=== PATIENT | female | born 1940 | race Caucasian/White ===

== ENCOUNTER 2016-05-22 14:36 | Outpatient (CLI) | payer MEDICARE | END 2016-05-22 14:37 | disposition home or self-care (01) | DX: Z12.31 Encounter for screening mammogram for malignant neoplasm of breast (principal) ==

== ENCOUNTER 2016-08-31 09:30 | Outpatient (CLI) | payer MEDICARE | END 2016-08-31 09:31 | disposition home or self-care (01) | DX: R07.81 Pleurodynia (principal) ==

== ENCOUNTER 2016-09-25 17:40 | Outpatient (CLI) | payer MEDICARE ==
--- NOTE | 2016-09-25 19:57 | Ultrasound Preliminary Report ---
Exam: US Chest IMPRESSION: Very small superficial subcutaneous nodule in the chest measuring 0.4 [address] in maximum diame ter. The ultrasound characteristics are not entirely specific but could represent a lipoma, postinfla mmatory scar or debris-filled cyst. RADIA The call report notification system was initiated by Dr. William Christy at 19:39 hrs on 7. The above findings were discussed with Dr. Stephanie Hunter by Dr. William Christy at 19:56 hrs on 09/25/16. SITE ID: [id number]
--- NOTE | 2016-09-25 20:00 | Ultrasound Report ---
EXAM: ULTRASOUND SOFT TISSUE CHEST EXAM DATE: 09/25/2016 06:23 PM. CLINICAL HISTORY: RT LATERAL CHEST WALL NODULE IN SOFT TISSUE. COMPARISON: None. TECHNIQUE: Realtime ultrasound scanning without images obtained. FINDINGS: 8 ultrasound images were performed and obtained of a palpable lump. There is a superficial echogenic nodule located within the subcutaneous tissue and measuring 0.4 x 0.4 x 0.2 cm. IMPRESSION: Very small superficial subcutaneous nodule in the chest measuring 0.[address] in maximum diame ter. The ultrasound characteristics are not entirely specific but could represent a lipoma, postinfla mmatory scar or debris-filled cyst. RADIA The call report notification system was initiated by Dr. William Christy at 19:39 hrs on 7. The above findings were discussed with Dr. Stephanie Hunter by Dr. William Christy at 19:56 hrs on 09/25/16. Referring Provider Line: [phone] SITE ID: [id number]
== END 2016-09-25 17:41 | disposition home or self-care (01) ==
LOC: DI 17:40
PROVIDERS: ATTEND Physician Assistant Medical
DX: R22.2 Localized swelling, mass and lump, trunk (principal)
CPT/HCPCS: 76604

== ENCOUNTER 2017-03-17 12:26 | Outpatient (CLI) | payer MEDICARE ==
--- NOTE | 2017-03-17 20:21 | CT Report ---
EXAM: CT SINUS EXAM DATE: 03/17/2017 12:41 PM. HISTORY: Acute sinusitis COMPARISONS: None. TECHNIQUE: Routine multi-axial CT imaging performed through the sinuses. Iodinated IV contrast: None. Reconstructions: Coronal. In accordance with CT protocol optimization, one or more of the following dose reduction techniques w ere utilized for this exam: automated exposure control, adjustment of mA and/or KV based on patient s ize, or use of iterative reconstructive technique. FINDINGS: RIGHT Frontal: Normal. Ethmoid: Normal. Maxillary: Minimal mucosal thickening in the medial floor. Sphenoid: Normal. Drainage Pathways: The frontal recess, ostiomeatal complex and sphenoethmoidal recess are patent and normal. LEFT Frontal: Normal. Ethmoid: Normal. Maxillary: Normal. Sphenoid: Normal. Drainage Pathways: The frontal recess, ostiomeatal complex and sphenoethmoidal recess are patent and normal. Nasal Cavity: Normal. No mass or significant anatomic abnormality evident. Osseous Structures: Incidentally noted hyperostosis frontalis interna. Orbits: Bilateral lens replacements noted. Other: The visualized intracranial contents are unremarkable. IMPRESSION: Minimal mucosal thickening in the right maxillary sinus floor. The paranasal sinuses are otherwise clear. No fluid levels to indicate acute sinusitis. The drainage pathways are patent. RADIA Referring Provider Line: [phone] SITE ID: [id number]
== END 2017-03-17 12:27 | disposition home or self-care (01) ==
LOC: DI 12:26
PROVIDERS: ATTEND Physician Assistant Medical
DX: J01.90 Acute sinusitis, unspecified (principal)
CPT/HCPCS: 70486

== ENCOUNTER 2017-05-15 08:00 | Outpatient (CLI) | payer MEDICARE ==
[2017-05-15 12:48] LABS: BASOPHILS % (AUTO) 0.5 %; EOSINOPHILS # (AUTO) 0.1 10^3/uL (0.0-0.7); EOSINOPHILS % (AUTO) 1.6 %; LYMPHOCYTES # (AUTO) 2.5 10^3/uL (1.5-3.5); LYMPHOCYTES % (AUTO) 33.6 %; MEAN CORPUSCULAR HEMOGLOBIN 28.8 pg (27.0-31.0); MEAN CORPUSCULAR HGB CONC 33.6 g/dL (32.0-36.0); MEAN CORPUSCULAR VOLUME 85.6 fL (81.0-99.0); MEAN PLATELET VOLUME 8.6 fL (7.9-10.8); MONOCYTES # (AUTO) 0.5 10^3/uL (0.0-1.0); MONOCYTES % (AUTO) 7.1 %; NEUTROPHILS # (AUTO) 4.3 10^3/uL (1.5-6.6); NEUTROPHILS % (AUTO) 57.2 %; PLT - PLATELET COUNT 198 10^3/uL (130-450); RED BLOOD COUNT 4.86 10^6/uL (4.20-5.40); RED CELL DISTRIBUTION WIDTH 13.7 % (12.0-15.0); WHITE BLOOD COUNT 7.5 x10^3/uL (4.8-10.8)
[2017-05-15 13:05] LABS: ALBUMIN 4.4 g/dL (3.2-5.5); ALBUMIN/GLOBULIN RATIO 1.2 (1.0-2.2); ALKALINE PHOSPHATASE 48 IU/L (42-121); ALT ALANINE AMINOTRANSFERASE 33 IU/L (10-60); AST ASPARTATE AMINOTRANSFERASE 33 IU/L (10-42); BILIRUBIN,TOTAL 0.6 mg/dL (0.2-1.0); BUN - BLOOD UREA NITROGEN 15 mg/dL (6-20); CALCIUM 9.5 mg/dL (8.5-10.3); CARBON DIOXIDE - CO2 25 mmol/L (21-32); CHLORIDE 103 mmol/L (101-111); CHOLESTEROL 176 mg/dL; CREATININE 0.8 mg/dL (0.4-1.0); GFR - MDRD 69 (>89); GLUCOSE 127 mg/dL (70-100); HDL CHOLESTEROL 44 mg/dL; LDL CHOLESTEROL,CALCULATED 86 mg/dL; SODIUM 138 mmol/L (135-145); TOTAL PROTEIN 8.1 g/dL (6.7-8.2); VLDL CHOLESTEROL 46 mg/dL
[2017-05-15 13:33] LABS: HEMOGLOBIN A1C 0.62 g/dL; HEMOGLOBIN A1C % 5.9 % (4.6-6.2)
== END 2017-05-15 08:01 | disposition home or self-care (01) ==
LOC: LAB.N 08:00
PROVIDERS: ATTEND Internal Medicine
DX: E11.49 Type 2 diabetes mellitus with other diabetic neurological complication (principal); E78.5 Hyperlipidemia, unspecified; Z79.899 Other long term (current) drug therapy
CPT/HCPCS: 36415; 80053; 80061; 83036; 85025

== ENCOUNTER 2017-07-11 10:15 | Outpatient (CLI) | payer MEDICARE ==
--- NOTE | 2017-07-12 14:43 | Mammography Report ---
DIGITAL SCREENING MAMMOGRAM: 07/11/2017 CLINICAL INDICATION: A 76-year-old with history of benign left breast biopsy for screening. COMPARISON: 05/2016, 04/2015, 04/2014, 03/2013, 10/2011, 10/2010, 10/2009. TECHNIQUE: Routine CC and MLO projections were obtained of the breasts. FINDINGS: The breasts demonstrate scattered fibroglandular densities bilaterally. Postbiopsy changes in the left breast are stable. Coarse and punctate, typically benign calcifications are present. No suspicious masses, clustered microcalcifications, or regions of architectural distortion are identified. IMPRESSION: BENIGN FINDINGS. RECOMMENDATION: Routine annual screening unless otherwise clinically indicated. BIRADS CATEGORY 2 - benign findings. STANDARD QUALIFYING STATEMENTS: 1. This examination was reviewed with the aid of Computer-Aided Detection (CAD). 2. A negative or benign imaging report should not delay biopsy if clinically suspicious findings are present. Consider surgical consultation if warranted. More than 5% of cancers are not identified by imaging. 3. Dense breasts may obscure an underlying neoplasm. TD: 07/12/2017 14:42
== END 2017-07-11 10:16 | disposition home or self-care (01) ==
LOC: DI.N 10:15
PROVIDERS: ATTEND Internal Medicine
DX: Z12.31 Encounter for screening mammogram for malignant neoplasm of breast (principal)
CPT/HCPCS: 77067

== ENCOUNTER 2017-11-12 08:00 | Outpatient (CLI) | payer MEDICARE | END 2017-11-12 08:01 | disposition home or self-care (01) | LOC: LAB.R 08:00 | PROVIDERS: ATTEND Internal Medicine | DX: Z01.818 Encounter for other preprocedural examination (principal); M19.90 Unspecified osteoarthritis, unspecified site | CPT/HCPCS: 87640 ==

== ENCOUNTER 2017-11-14 08:00 | Outpatient (CLI) | payer MEDICARE ==
[2017-11-14 12:45] LABS: BASOPHILS % (AUTO) 0.1 %; EOSINOPHILS # (AUTO) 0.1 10^3/uL (0.0-0.7); EOSINOPHILS % (AUTO) 1.4 %; HGB - HEMOGLOBIN 13.1 g/dL (12.0-16.0); LYMPHOCYTES # (AUTO) 1.9 10^3/uL (1.5-3.5); MEAN CORPUSCULAR HEMOGLOBIN 29.1 pg (27.0-31.0); MEAN CORPUSCULAR VOLUME 88.1 fL (81.0-99.0); MEAN PLATELET VOLUME 8.5 fL (7.9-10.8); MONOCYTES # (AUTO) 0.5 10^3/uL (0.0-1.0); MONOCYTES % (AUTO) 7.9 %; NEUTROPHILS # (AUTO) 3.9 10^3/uL (1.5-6.6); NEUTROPHILS % (AUTO) 60.6 %; PLT - PLATELET COUNT 201 10^3/uL (130-450); RED BLOOD COUNT 4.52 10^6/uL (4.20-5.40); WHITE BLOOD COUNT 6.5 x10^3/uL (4.8-10.8)
[2017-11-14 13:02] LABS: ALBUMIN 3.9 g/dL (3.2-5.5); ALBUMIN/GLOBULIN RATIO 1.1 (1.0-2.2); BILIRUBIN,TOTAL 0.7 mg/dL (0.2-1.0); CALCIUM 9.3 mg/dL (8.5-10.3); CREATININE 0.8 mg/dL (0.4-1.0); TOTAL PROTEIN 7.4 g/dL (6.7-8.2)
== END 2017-11-14 08:01 | disposition home or self-care (01) ==
LOC: LAB.N 08:00
PROVIDERS: ATTEND Internal Medicine
DX: Z01.812 Encounter for preprocedural laboratory examination (principal); M19.90 Unspecified osteoarthritis, unspecified site; E11.49 Type 2 diabetes mellitus with other diabetic neurological complication; E78.5 Hyperlipidemia, unspecified
CPT/HCPCS: 36415; 80053; 85025

== ENCOUNTER 2017-12-03 08:00 | Outpatient (CLI) | payer MEDICARE | END 2017-12-03 08:01 | disposition home or self-care (01) | LOC: LAB.N 08:00 | PROVIDERS: ATTEND Orthopaedic Surgery | DX: Z01.812 Encounter for preprocedural laboratory examination (principal); M17.11 Unilateral primary osteoarthritis, right knee | CPT/HCPCS: 36415; 86850; 86900; 86901 ==

== ENCOUNTER 2017-12-04 06:14 | Inpatient (IN) | payer MEDICARE ==
[2017-12-04] MEDS ORDERED: SODIUM CHLORIDE 0.9% 30 ML ONE (06:58)
[2017-12-04] MEDS ORDERED: BUPIVACAINE 0.5% PF 30 ML VIAL ONE (06:58)
[2017-12-04] MEDS ORDERED: ROPIVACAINE 0.5% PF 20 ML AMPULE ONE (06:59)
[2017-12-04] MEDS ORDERED: EPINEPHrine 1 MG/ML AMP ONE (07:00)
[2017-12-04] MEDS ORDERED: ceFAZolin 2 GM/50 ML 2 GM/50 ML BAG IV ONE (07:01)
[2017-12-04] MEDS ORDERED: LACTATED RINGERS 1,000 ML IV ONE ×2 (07:15→09:31)
[2017-12-04] MEDS ORDERED: EPINEPHrine 1 MG/ML AMP SUBQ ONE ×2 (08:28)
[2017-12-04] MEDS ORDERED: ROPIVACAINE 0.2% PF 20 ML AMPULE SUBQ ONE ×2 (08:29)
[2017-12-04] MEDS ORDERED: BUPIVACAINE 0.5% PF 30 ML VIAL SUBQ ONE ×2 (08:32)
[2017-12-04] MEDS ORDERED: KETOROLAC 30 MG/ML VIAL IVP ONE ×2 (08:33)
[2017-12-04] MEDS ORDERED: MORPHINE PF 5 MG/10 ML AMP SUBQ ONE ×2 (08:34)
[2017-12-04] MEDS ORDERED: MIDAZOLAM 2 MG/2 ML VIAL IVP ONE (09:00)
[2017-12-04] MEDS ORDERED: LIDOCAINE-MPF 2% 5 ML VIAL IM ONE (09:00)
[2017-12-04] MEDS ORDERED: MORPHINE PF 5 MG/10 ML AMP EP ONE (09:00)
[2017-12-04] MEDS ORDERED: PROPOFOL 200 MG/20 ML VIAL IVP ONE (09:00)
[2017-12-04] MEDS: fentaNYL 100 MCG/2 ML VIAL ONE ×3 (09:55→10:09)
--- NOTE | 2017-12-04 10:10 | OPERATIVE REPORT ---
Operative Report - General Admit Date: 12/04/17 Procedure Date: 12/04/17 Planned Procedure: Right TKA Pre-Op Diagnosis: DJD right knee Procedure Performed: Right Cemented TKA Post Op Diagnosis: same - Procedure Note Primary Surgeon: cat Anesthesia Provider: Dr. Wood Anesthesia Technique: Combo spinal/epidural Estimated Blood Loss (mL): 70
[2017-12-04] MEDS ORDERED: SODIUM CHLORIDE FLUSH 0.9% 10 ML SYRINGE IVP PRN (10:11)
[2017-12-04] MEDS ORDERED: SENNA 8.6 MG TABLET PO PRN (10:11)
[2017-12-04] MEDS ORDERED: PROCHLORPERAZINE 10 MG/2 ML VIAL IVP PRN (10:11)
[2017-12-04] MEDS ORDERED: MORPHINE 2 MG/ML SYRINGE IVP PRN (10:11)
[2017-12-04] MEDS ORDERED: BISACODYL 10 MG SUPP PR PRN (10:11)
[2017-12-04] MEDS ORDERED: ONDANSETRON 4 MG/2 ML VIAL IVP PRN (10:11)
[2017-12-04] MEDS ORDERED: ACETAMINOPHEN 1,000 MG/100 ML 100 ML IV ONE (10:14)
[2017-12-04] MEDS: HYDROmorphone 1 MG/ML CARPUJECT ONE ×2 (10:16→10:27)
[2017-12-04] MEDS: LACTATED RINGERS 1,000 ML IV SCH ×2 (11:07→16:48)
--- NOTE | 2017-12-04 13:04 | XRAY Report ---
Procedure Date: 12/04/2017 Accession Number: [id number] / [id number] Procedure: XR - Knee 2 View RT CPT Code: FULL RESULT: EXAM: Knee 2 View RT DATE: 12/04/2017 12:58 PM CLINICAL HISTORY: post TKA COMPARISON: None. TECHNIQUE: 2 views. FINDINGS: The patient is status post total knee arthroplasty without evidence of dislocation, fracture or hardware failure. There is expected surrounding soft tissue swelling. IMPRESSION: Status post right total knee arthroplasty. RADIA
[2017-12-04] MEDS: ceFAZolin 2 GM/50 ML 2 GM/50 ML BAG IV SCH ×2 (13:49→21:34)
--- NOTE | 2017-12-04 16:36 | OPERATIVE REPORT ---
DATE OF SERVICE: 12/04/2017 Physician: Gareth Pritchett MD PREOPERATIVE DIAGNOSIS: Right knee osteoarthritis. POSTOPERATIVE DIAGNOSIS: Right knee osteoarthritis. PROCEDURE: Cemented right total knee arthroplasty. OPERATING SURGEON: Gareth Pritchett MD ANESTHESIA: Spinal by Dr. Batista. INDICATIONS FOR SURGERY: Patient is a 77-year-old female with advancing and severe osteoarthritis of her right knee who has severe functional limitations and constant pain and has failed nonoperative treatment. She has been consented for total knee arthroplasty. FINDINGS AT SURGERY: Patient's knee was found to have an effusion. She did have a fairly strong bone and was noted to have most severe changes in the medial compartment with partial anterior horn tearing of her medial meniscus, [id number] articulation kissing in the area on the femur of exposed subchondral bone. There was fissuring in the femoral groove and on the patella and severe softening in the lateral compartment. Cruciate ligaments were intact. DESCRIPTION OF OPERATIVE PROCEDURE: Patient was taken to the operating room. She was given a spinal anesthetic in a supine position. A tourniquet was placed on her thigh and her knee and leg were sterilely prepped and draped in standard fashion. After surgical timeout, the patient's limb was exsanguinated and the tourniquet inflated to 300 mmHg. A curved medial incision was made around the knee and a parapatellar incision was made through the medial retinaculum, exposing the underlying knee joint, removing effusion and allowing the knee to be exposed in flexion with the patella everted laterally. Retractors were positioned. A central hole was made in the femur for placement of the femoral medullary cutting block and the distal block was applied and the distal femoral cut made. The sizing block was applied and a size 5 was selected for the 4-in-1 cutting block and the appropriate cuts were made without notching. A bone plug was used in the femoral medullary hole. Retractors were then positioned around the tibia for appropriate resection of the tibia measuring a 1 mm resection off the deepest worn part of the medial plateau, resecting the tibia and preserving surrounding collateral ligaments. Spacer blocks were used to confirm appropriate resection in flexion and extension with matching gaps. Following this, the exposure was made of the tibia and appropriate sizing was a size C baseplate, which was secured to the tibia for the reaming and broaching that were required. A trial reduction was performed and it was elected to use narrow components on the femur , a size 5 narrow with a size C baseplate and a standard 10 mm poly, which stabilized the knee and allowed full range of motion. The patella was prepared by resection of 8 mm of the patella to resize back to 23 mm and medialization of a 29 mm component. This was drilled for and a trial component applied and a further lateral release performed to accommodate better tracking with a no thumbs technique. All surfaces were then thoroughly irrigated and the implantable components brought into the field and sequential cementing of the components undertaken with first the tibial tray, followed by the femur with removal of excess cement, followed by insertion of the poly and finally insertion of the patella. Once the cement was allowed to harden, excess cement was removed. The knee was flushed and irrigated and bathed in Betadine solution , and then flushed again. With the tourniquet deflated, there was minimal bleeding and what was there was controlled by cautery. Closure was undertaken with interrupted FiberWire closure of the capsule, followed by interrupted 0 and 2-0 Vicryl of subcutaneous tissue and 2-0 Prolene and skin. The wound was cleansed and a silver-containing occlusive dressing was applied, followed by a soft cast roll padding and Tomás wrap. The patient was taken to the recovery room in stable condition. ESTIMATED BLOOD LOSS: About 60 mL. COMPLICATIONS: None. COUNTS: Sponge and needle counts correct. IMPLANTS USED: [employer] knee implants, size 5 narrow femur, size C tibial tray with medial congruent 10 mm poly and a size 29 patella medialized to 8 mm thick. TD: 12/04/2017 12:29 SHWETA
[2017-12-04] MEDS: ASPIRIN 325 MG TABLET PO SCH (16:49)
[2017-12-04] MEDS: SODIUM CHLORIDE FLUSH 0.9% 10 ML SYRINGE IVP SCH (16:49)
[2017-12-04] MEDS: ACETAMINOPHEN 325 MG TABLET PO PRN ×2 (17:40→21:42)
[2017-12-04] MEDS: oxyCODONE 5 MG TABLET PO PRN ×2 (17:40→21:43)
[2017-12-04] MEDS ORDERED: LATANOPROST 0.005% OPHTH DROPS EACHEYE SCH (21:00)
[2017-12-04] MEDS: ATORVASTATIN 10 MG TABLET PO SCH (21:32)
[2017-12-04] MEDS: GABAPENTIN 300 MG CAPSULE PO SCH (21:32)
[2017-12-05] MEDS: SODIUM CHLORIDE FLUSH 0.9% 10 ML SYRINGE IVP SCH ×4 (00:31→23:42)
[2017-12-05] MEDS: LACTATED RINGERS 1,000 ML IV SCH (02:40)
[2017-12-05] MEDS: ACETAMINOPHEN 325 MG TABLET PO PRN ×4 (03:48→14:50)
[2017-12-05] MEDS: oxyCODONE 5 MG TABLET PO PRN ×4 (03:49→14:51)
[2017-12-05 05:40] LABS: BASOPHILS % (AUTO) 0.4 %; EOSINOPHILS # (AUTO) 0.1 10^3/uL (0.0-0.7); EOSINOPHILS % (AUTO) 0.8 %; LYMPHOCYTES # (AUTO) 1.5 10^3/uL (1.5-3.5); LYMPHOCYTES % (AUTO) 19.6 %; MEAN CORPUSCULAR VOLUME 88.1 fL (81.0-99.0); MONOCYTES # (AUTO) 0.8 10^3/uL (0.0-1.0); MONOCYTES % (AUTO) 10.7 %; NEUTROPHILS # (AUTO) 5.2 10^3/uL (1.5-6.6); NEUTROPHILS % (AUTO) 68.5 %; PLT - PLATELET COUNT 139 10^3/uL (130-450); RED BLOOD COUNT 3.78 10^6/uL (4.20-5.40); WHITE BLOOD COUNT 7.6 x10^3/uL (4.8-10.8)
[2017-12-05 05:48] LABS: CALCIUM 8.7 mg/dL (8.5-10.3); CREATININE 0.9 mg/dL (0.4-1.0)
--- NOTE | 2017-12-05 07:31 | PROVIDER PROGRESS NOTE ---
Subjective - General Admit Date: 12/04/17 Procedure Date: 12/04/17 Post Op Days: 1 Procedure Performed: right total knee arthroplasty Objective - Patient Data Reviewed Vital Signs: Yes Vital Signs: Vital Signs x48h Temp Pulse Resp BP Pulse Ox 12/05/17 06:30 36.9 C 84 16 123/54 L 94 12/05/17 00:20 36.9 C 82 16 126/47 L 95 Weight: Weight 12/03/17 12/04/17 12/05/17 23:59 23:59 23:59 Weight (kg) 84.9 kg Intake & Output: Intake and Output Totals x24h 12/03/17 12/04/17 12/05/17 23:59 23:59 23:59 Intake Total 2945.333 986.667 Output Total 2325 1000 Balance 620.333 -13.333 - Lab Results Lab Results: 12/05/17 05:33 12/05/17 05:33 Other Lab Results: Lab Results x24hrs 12/05/17 12/05/17 Range/Units 05:33 05:33 WBC 7.6 (4.8-10.8) x10^3/uL RBC 3.78 L (4.20-5.40) 10^6/uL Hgb 11.0 L (12.0-16.0) g/dL Hct 33.3 L (37.0-47.0) % MCV 88.1 (81.0-99.0) fL MCH 29.0 (27.0-31.0) pg MCHC 33.0 (32.0-36.0) g/dL RDW 14.0 (12.0-15.0) % Plt Count 139 (130-450) 10^3/uL MPV 8.0 (7.9-10.8) fL Neut # (Auto) 5.2 (1.5-6.6) 10^3/uL Lymph # (Auto) 1.5 (1.5-3.5) 10^3/uL Barron # (Auto) 0.8 (0.0-1.0) 10^3/uL Eos # (Auto) 0.1 (0.0-0.7) 10^3/uL Baso # (Auto) 0.0 (0.0-0.1) 10^3/uL Absolute Nucleated RBC 0.00 x10^3/uL Nucleated RBC % 0.0 /100WBC Sodium 138 (135-145) mmol/L Potassium 4.0 (3.5-5.0) mmol/L Chloride 104 (101-111) mmol/L Carbon Dioxide 26 (21-32) mmol/L Anion Gap 8.0 (6-13) BUN 12 (6-20) mg/dL Creatinine 0.9 (0.4-1.0) mg/dL Estimated GFR (MDRD) 60 L (>89) Glucose 167 H (70-100) mg/dL Calcium 8.7 (8.5-10.3) mg/dL - Current Medications Current Medications: Current Medications Generic Name Dose Route Start Last Admin Trade Name Freq PRN Reason Stop Dose Admin Acetaminophen 650 - 975 mg 12/04/17 10:11 12/05/17 07:13 Tylenol PO 325 mg Q4HR PRN Administration PAIN Aspirin 325 mg 12/04/17 17:00 12/04/17 16:49 Gretchen PO 325 mg BIDWM AUTUMN Administration Atorvastatin Calcium 20 mg 12/04/17 21:00 12/04/17 21:32 Lipitor PO 20 mg QPM AUTUMN Administration Gabapentin 300 mg 12/04/17 21:00 12/04/17 21:32 Neurontin PO 300 mg HS AUTUMN Administration Lactated Ringer's 1,000 mls @ 100 mls/hr 12/04/17 12:00 12/05/17 02:40 Lr IV 100 mls/hr .Q10H AUTUMN Administration Latanoprost 1 drops 12/04/17 21:00 12/04/17 21:32 Xalatan Ophth Drops EACHEYE 1 drops QPM AUTUMN Administration Oxycodone HCl 5 mg 12/04/17 10:11 12/05/17 07:14 Roxicodone PO 5 mg Q4HR PRN Administration PAIN Sodium Chloride 10 ml 12/04/17 17:00 12/05/17 00:31 Normal Saline Flush 0.9% IVP Not Given 0100,0900,1700 AUTUMN
[2017-12-05] MEDS: ASPIRIN 325 MG TABLET PO SCH ×2 (08:32→16:38)
[2017-12-05] MEDS: KETOROLAC 30 MG/ML VIAL IVP PRN ×2 (10:55→19:45)
[2017-12-05] MEDS: ATORVASTATIN 10 MG TABLET PO SCH (20:45)
[2017-12-05] MEDS: GABAPENTIN 300 MG CAPSULE PO SCH (20:46)
[2017-12-06] MEDS: oxyCODONE 5 MG TABLET PO PRN (06:18)
[2017-12-06] MEDS: ASPIRIN 325 MG TABLET PO SCH (08:15)
[2017-12-06 08:16] VITALS: BP 171/63
[2017-12-06] MEDS: KETOROLAC 30 MG/ML VIAL IVP PRN (08:16)
[2017-12-06] MEDS: SODIUM CHLORIDE FLUSH 0.9% 10 ML SYRINGE IVP SCH (08:20)
[2017-12-06] MEDS ORDERED: LATANOPROST 0.005% OPHTH DROPS EACHEYE SCH (09:00)
[2017-12-06] MEDS ORDERED: SENNA 8.6 MG TABLET PO SCH (09:00)
[2017-12-06] MEDS ORDERED: DOCUSATE SODIUM 250 MG CAPSULE PO SCH (09:00)
--- NOTE | 2017-12-06 10:11 | PROVIDER PROGRESS NOTE ---
Subjective - General Admit Date: 12/04/17 Procedure Date: 12/04/17 Post Op Days: 2 Procedure Performed: right total knee arthroplasty - Review of Systems Wound/Incisions: positive: Healing well, Dressing dry and intact Musculoskeletal: positive: Joint pain Skin: positive: No symptoms Objective - Patient Data Reviewed Vital Signs: Yes Vital Signs: Vital Signs x48h Temp Pulse Resp BP Pulse Ox 12/06/17 08:14 36.6 C 72 20 171/63 H 97 Weight: Weight 12/04/17 12/05/17 12/06/17 23:59 23:59 23:59 Weight (kg) 84.9 kg Intake & Output: Intake and Output Totals x24h 12/04/17 12/05/17 12/06/17 23:59 23:59 23:59 Intake Total 2945.333 2886.667 570 Output Total 2325 2400 500 Balance 620.333 486.667 70 - Lab Results Lab Results: 12/05/17 05:33 12/05/17 05:33 - Imaging Results Radiology Imaging: positive: EMP read indepedently - Current Medications Current Medications: Current Medications Generic Name Dose Route Start Last Admin Trade Name Freq PRN Reason Stop Dose Admin Acetaminophen 650 - 975 mg 12/04/17 10:11 12/05/17 14:50 Tylenol PO 650 mg Q4HR PRN Administration PAIN Aspirin 325 mg 12/04/17 17:00 12/06/17 08:15 Gretchen PO 325 mg BIDWM AUTUMN Administration Atorvastatin Calcium 20 mg 12/04/17 21:00 12/05/17 20:45 Lipitor PO 20 mg QPM AUTUMN Administration Docusate Sodium 250 - 500 mg 12/06/17 09:00 12/06/17 08:15 Colace 250mg Capsule PO 500 mg DAILY AUTUMN Administration Gabapentin 300 mg 12/04/17 21:00 12/05/17 20:46 Neurontin PO 300 mg HS AUTUMN Administration Ketorolac Tromethamine 30 mg 12/05/17 10:40 12/06/17 08:16 Toradol Inj (30mg) IVP 12/06/17 10:39 30 mg Q6HR PRN Administration PAIN Morphine Sulfate 2 mg 12/04/17 10:11 12/05/17 10:41 Morphine IVP 2 mg Q2HR PRN Administration PAIN Oxycodone HCl 5 mg 12/04/17 10:11 12/06/17 06:18 Roxicodone PO 5 mg Q4HR PRN Administration PAIN Latanoprost 0.005% 1 each 12/06/17 09:00 12/05/17 20:45 Ophth Drops EACHEYE 1 each QPM AUTUMN Administration Senna 8.6 - 17.2 mg 12/06/17 09:00 12/06/17 08:20 Senokot PO 17.2 mg DAILY AUTUMN Administration Sodium Chloride 10 ml 12/04/17 17:00 12/06/17 08:20 Normal Saline Flush 0.9% IVP 10 ml 0100,0900,1700 AUTUMN Administration Sodium Chloride 10 ml 12/04/17 10:11 12/05/17 19:46 Normal Saline Flush 0.9% IVP 10 ml PRN PRN Administration NEEDED PER PROVIDER ORDERS - Physical Exam Wound/Incisions: positive: Healing well General Appearance: positive: Alert Skin: positive: Warm, Dry Extremities: positive: Joint swelling Neurologic/Psychiatric: positive: CN's nml (2-12), Motor nml, Sensation nml, Mood/affect nml Impression/Plan - Problem List Problem List: POD #2: Pt doing well Plan d/c to home rtc next week
[2017-12-06] MEDS: ACETAMINOPHEN 325 MG TABLET PO PRN (12:00)
--- NOTE | 2017-12-06 12:10 | Discharge Plan ---
Discharge Plan Disposition: Home, Self Care Condition: Good Prescriptions: oxyCODONE [Roxicodone] 5 mg PO Q4HR PRN #30 tablet PRN Reason: Pain Aspirin [Gretchen] 325 mg PO BIDWM #60 tablet Docusate Sodium 250Mg Capsule [Colace 250Mg Capsule] 250 - 500 mg PO DAILY #30 capsule Diet: Regular Activity Restrictions: Wt Bearing as Tolerated Shower Restrictions: Yes (cover right knee and keep dry) Driving Restrictions: Yes (no driving) Assistance Devices: Walker Weight Bearing: Full Weight Follow-Up Care: Outpatient Rehab - PT No Smoking: If you smoke, Please STOP! Call for help. Follow-up with: Frank Solorzano MD [Primary Care Provider] - Gareth Pritchett MD [Provider Admit Priv/Credential] -
--- NOTE | 2017-12-28 01:20 | DISCHARGE SUMMARY ---
Physician: Gareth Pritchett MD DATE OF ADMISSION: 12/04/2017 DATE OF DISCHARGE: 12/06/2017 ADMISSION DIAGNOSES: Right knee severe osteoarthritis. OPERATIVE PROCEDURE: Right total knee replacement arthroplasty performed on 12/04/2017. REASON FOR ADMISSION: Arabella is a 66-year-old female with progressive osteoarthritis of her right knee, who has been managed with nonoperative treatment over an extended period of time and has persis tent knee pain, functional limitations and desires total knee arthroplasty. HOSPITAL COURSE: The patient was admitted and her history and physical exam are delineated and docum ented in her hospital record. She was taken to surgery on the date of admission and tolerated total knee arthroplasty uneventfully. The patient did well during the surgery and afterwards. She had une ventful healing, was afebrile, showed minimal swelling at the time of discharge. At the time of disc harge, she was set up to go home on oral pain medication and aspirin for DVT prophylaxis. She was to begin physical therapy within a week and be returned to clinic within 4-5 days. TD: 12/27/2017 17:00
== END 2017-12-06 13:45 | disposition home or self-care (01) | DRG 470 ==
LOC: MS2 06:14
PROVIDERS: ADMIT Orthopaedic Surgery; ATTEND Orthopaedic Surgery
PROC: 0SRC0J9 Replacement of Right Knee Joint with Synthetic Substitute, Cemented, Open Approach (ICD-10-PCS; principal; 2017-12-04 07:30)
DX: M17.0 Bilateral primary osteoarthritis of knee (principal); M25.461 Effusion, right knee
CPT/HCPCS: 36415; 80048; 85025

== ENCOUNTER 2018-05-17 08:19 | Outpatient (CLI) | payer MEDICARE ==
[2018-05-17 12:58] LABS: BASOPHILS % (AUTO) 0.2 %; EOSINOPHILS # (AUTO) 0.1 10^3/uL (0.0-0.7); EOSINOPHILS % (AUTO) 1.7 %; HGB - HEMOGLOBIN 13.3 g/dL (12.0-16.0); LYMPHOCYTES # (AUTO) 1.8 10^3/uL (1.5-3.5); LYMPHOCYTES % (AUTO) 30.5 %; MEAN CORPUSCULAR HEMOGLOBIN 28.4 pg (27.0-31.0); MEAN CORPUSCULAR HGB CONC 33.5 g/dL (32.0-36.0); MEAN CORPUSCULAR VOLUME 84.7 fL (81.0-99.0); MEAN PLATELET VOLUME 8.3 fL (7.9-10.8); MONOCYTES # (AUTO) 0.5 10^3/uL (0.0-1.0); MONOCYTES % (AUTO) 8.3 %; NEUTROPHILS # (AUTO) 3.5 10^3/uL (1.5-6.6); NEUTROPHILS % (AUTO) 59.3 %; PLT - PLATELET COUNT 199 10^3/uL (130-450); RED BLOOD COUNT 4.67 10^6/uL (4.20-5.40); RED CELL DISTRIBUTION WIDTH 15.6 % (12.0-15.0); WHITE BLOOD COUNT 5.9 x10^3/uL (4.8-10.8)
[2018-05-17 13:21] LABS: ALBUMIN 4.1 g/dL (3.2-5.5); ALBUMIN/GLOBULIN RATIO 1.2 (1.0-2.2); ALKALINE PHOSPHATASE 57 IU/L (42-121); ALT ALANINE AMINOTRANSFERASE 17 IU/L (10-60); AST ASPARTATE AMINOTRANSFERASE 18 IU/L (10-42); BILIRUBIN,TOTAL 0.7 mg/dL (0.2-1.0); BUN - BLOOD UREA NITROGEN 17 mg/dL (6-20); CALCIUM 9.5 mg/dL (8.5-10.3); CARBON DIOXIDE - CO2 28 mmol/L (21-32); CHLORIDE 103 mmol/L (101-111); CHOLESTEROL 184 mg/dL; CREATININE 0.8 mg/dL (0.4-1.0); GFR - MDRD 69 (>89); GLUCOSE 118 mg/dL (70-100); HDL CHOLESTEROL 46 mg/dL; LDL CHOLESTEROL,CALCULATED 102 mg/dL; LDL/HDL RATIO 2.2 (<4.4); SODIUM 142 mmol/L (135-145); TOTAL PROTEIN 7.5 g/dL (6.7-8.2); VLDL CHOLESTEROL 36 mg/dL
[2018-05-17 13:35] LABS: HB2 TOTAL 14.3 g/dL; HEMOGLOBIN A1C 0.61 g/dL; HEMOGLOBIN A1C % 6.1 % (4.6-6.2)
== END 2018-05-17 23:59 | disposition home or self-care (01) ==
LOC: LAB.N 08:19
PROVIDERS: ATTEND Internal Medicine
DX: E11.49 Type 2 diabetes mellitus with other diabetic neurological complication (principal); E78.5 Hyperlipidemia, unspecified
CPT/HCPCS: 36415; 80053; 80061; 83036; 83721; 84443; 85025

== ENCOUNTER 2018-07-18 10:32 | Outpatient (CLI) | payer MEDICARE ==
--- NOTE | 2018-07-18 17:00 | Mammography Report ---
Reason: SCREENING MAMMOGRAM Procedure Date: 07/18/2018 Accession Number: [id number] / [id number] Procedure: MGN - Screening Mammo Dig Bilat CPT Code: FULL RESULT: EXAM: Screening Mammo Dig Bilat DATE: 07/18/2018 10:56 AM CLINICAL HISTORY: Routine screening. No reported personal or family history of breast cancer. TECHNIQUE: Bilateral CC and MLO views were obtained. COMPARISON: 07/11/2017 through 10/16/2008 FINDINGS: The breasts demonstrate scattered fibroglandular densities bilaterally. Bilateral breasts: There are no suspicious masses, calcifications or areas of distortion. IMPRESSION: Negative examination RECOMMENDATION: Routine annual screening unless otherwise clinically indicated. BI-RADS CATEGORY 1: Negative STANDARD QUALIFYING STATEMENTS: 1. This examination was reviewed with the aid of Computer-Aided Detection (CAD). 2. A negative or benign imaging report should not preclude biopsy if clinically suspicious findings are present. 3. Dense breasts may obscure an underlying neoplasm. 4. This examination was reviewed without the aid of 3D breast imaging (tomosynthesis).
== END 2018-07-18 10:33 | disposition home or self-care (01) ==
LOC: DI.N 10:32
PROVIDERS: ATTEND Internal Medicine
DX: Z12.31 Encounter for screening mammogram for malignant neoplasm of breast (principal)
CPT/HCPCS: 77067

== ENCOUNTER 2018-08-15 06:10 | Day surgery (SDC) | payer MEDICARE ==
[2018-08-15] MEDS ORDERED: LACTATED RINGERS 1,000 ML IV ONE (06:47)
[2018-08-15] MEDS ORDERED: fentaNYL 100 MCG/2 ML VIAL IVP ONE (07:16)
[2018-08-15] MEDS ORDERED: MIDAZOLAM 2 MG/2 ML VIAL IVP ONE (07:16)
[2018-08-15 08:19] VITALS: BP 146/75
== END 2018-08-15 06:11 | disposition home or self-care (01) ==
LOC: SDS 06:10
PROVIDERS: ATTEND Internal Medicine Gastroenterology
PROC: 0DBH8ZX Excision of Cecum, Via Natural or Artificial Opening Endoscopic, Diagnostic (ICD-10-PCS; 2018-08-15)
PROC: 0DBL8ZZ Excision of Transverse Colon, Via Natural or Artificial Opening Endoscopic (ICD-10-PCS; principal; 2018-08-15 07:30)
DX: Z12.11 Encounter for screening for malignant neoplasm of colon (principal); K57.30 Diverticulosis of large intestine without perforation or abscess without bleeding; D12.0 Benign neoplasm of cecum; D12.3 Benign neoplasm of transverse colon; E11.9 Type 2 diabetes mellitus without complications; Z96.651 Presence of right artificial knee joint; Z79.82 Long term (current) use of aspirin; R60.0 Localized edema; H81.10 Benign paroxysmal vertigo, unspecified ear
CPT/HCPCS: 45380; 45385; J7120

== ENCOUNTER 2019-06-17 08:00 | Outpatient (CLI) | payer MEDICARE ==
[2019-06-17 12:17] LABS: INR 1.1 (0.8-1.2); PT - PROTHROMBIN TIME 12.2 secs (9.9-12.6)
[2019-06-17 12:22] LABS: BASOPHILS % (AUTO) 0.6 %; EOSINOPHILS # (AUTO) 0.1 10^3/uL (0.0-0.7); EOSINOPHILS % (AUTO) 1.1 %; HGB - HEMOGLOBIN 13.1 g/dL (12.0-16.0); LYMPHOCYTES # (AUTO) 1.9 10^3/uL (1.5-3.5); LYMPHOCYTES % (AUTO) 28.1 %; MEAN CORPUSCULAR HEMOGLOBIN 28.5 pg (27.0-31.0); MEAN CORPUSCULAR HGB CONC 31.4 g/dL (32.0-36.0); MEAN CORPUSCULAR VOLUME 90.8 fL (81.0-99.0); MEAN PLATELET VOLUME 10.7 fL (7.9-10.8); MONOCYTES # (AUTO) 0.5 10^3/uL (0.0-1.0); NEUTROPHILS # (AUTO) 4.1 10^3/uL (1.5-6.6); NEUTROPHILS % (AUTO) 61.7 %; PLT - PLATELET COUNT 221 10^3/uL (130-450); RED BLOOD COUNT 4.59 10^6/uL (4.20-5.40); RED CELL DISTRIBUTION WIDTH 13.5 % (12.0-15.0); WHITE BLOOD COUNT 6.6 x10^3/uL (4.8-10.8)
[2019-06-17 12:24] LABS: PARTIAL THROMBOPLASTIN TIME 34.2 secs (24.9-33.3)
[2019-06-17 12:41] LABS: ALBUMIN 4.3 g/dL (3.2-5.5); ALBUMIN/GLOBULIN RATIO 1.4 (1.0-2.2); BILIRUBIN,TOTAL 0.9 mg/dL (0.2-1.0); CALCIUM 9.3 mg/dL (8.5-10.3); CREATININE 0.8 mg/dL (0.4-1.0); TOTAL PROTEIN 7.4 g/dL (6.7-8.2)
[2019-06-17 12:52] LABS: HB2 TOTAL 13.1 g/dL; HEMOGLOBIN A1C 0.57 g/dL; HEMOGLOBIN A1C % 6.1 % (4.6-6.2)
== END 2019-06-17 23:59 | disposition home or self-care (01) ==
LOC: LAB.N 08:00
PROVIDERS: ATTEND Family Medicine
DX: Z01.812 Encounter for preprocedural laboratory examination (principal); M25.462 Effusion, left knee; M25.562 Pain in left knee; M17.12 Unilateral primary osteoarthritis, left knee
CPT/HCPCS: 36415; 80053; 83036; 85025; 85610; 85730

== ENCOUNTER 2019-06-26 11:45 | Outpatient (CLI) | payer MEDICARE | END 2019-06-26 23:59 | disposition home or self-care (01) | LOC: LAB.R 11:45 | PROVIDERS: ATTEND Family Medicine | DX: Z01.812 Encounter for preprocedural laboratory examination (principal); M17.12 Unilateral primary osteoarthritis, left knee | CPT/HCPCS: 87640 ==

== ENCOUNTER 2020-06-23 09:32 | Outpatient (CLI) | payer MEDICARE ==
[2020-06-23 12:47] LABS: BASOPHILS % (AUTO) 0.4 %; EOSINOPHILS # (AUTO) 0.1 10^3/uL (0.0-0.7); EOSINOPHILS % (AUTO) 1.4 %; HGB - HEMOGLOBIN 11.9 g/dL (12.0-16.0); LYMPHOCYTES # (AUTO) 2.8 10^3/uL (1.5-3.5); LYMPHOCYTES % (AUTO) 40.5 %; MEAN CORPUSCULAR HEMOGLOBIN 23.6 pg (27.0-31.0); MEAN CORPUSCULAR HGB CONC 29.1 g/dL (32.0-36.0); MEAN PLATELET VOLUME 10.1 fL (7.9-10.8); MONOCYTES # (AUTO) 0.6 10^3/uL (0.0-1.0); MONOCYTES % (AUTO) 8.7 %; NEUTROPHILS # (AUTO) 3.4 10^3/uL (1.5-6.6); NEUTROPHILS % (AUTO) 48.6 %; PLT - PLATELET COUNT 261 10^3/uL (130-450); RED BLOOD COUNT 5.05 10^6/uL (4.20-5.40); RED CELL DISTRIBUTION WIDTH 18.5 % (12.0-15.0)
[2020-06-23 13:07] LABS: ALBUMIN 4.2 g/dL (3.2-5.5); ALBUMIN/GLOBULIN RATIO 1.2 (1.0-2.2); ALKALINE PHOSPHATASE 62 IU/L (42-121); ALT ALANINE AMINOTRANSFERASE 18 IU/L (10-60); AST ASPARTATE AMINOTRANSFERASE 19 IU/L (10-42); BILIRUBIN,TOTAL 0.7 mg/dL (0.2-1.0); BUN - BLOOD UREA NITROGEN 15 mg/dL (6-20); CALCIUM 9.9 mg/dL (8.5-10.3); CARBON DIOXIDE - CO2 28 mmol/L (21-32); CHLORIDE 103 mmol/L (101-111); CHOLESTEROL 211 mg/dL; CREATININE 0.8 mg/dL (0.4-1.0); GLUCOSE 122 mg/dL (70-100); HDL CHOLESTEROL 53 mg/dL; LDL CHOLESTEROL,CALCULATED 113 mg/dL; LDL/HDL RATIO 2.1 (<4.4); TOTAL PROTEIN 7.8 g/dL (6.7-8.2); VLDL CHOLESTEROL 45 mg/dL
[2020-06-23 15:19] LABS: HEMOGLOBIN A1c% 6.1 % (4.27-6.07)
== END 2020-06-23 23:59 | disposition home or self-care (01) ==
LOC: LAB.WCP 09:32
PROVIDERS: ATTEND Family Medicine
DX: R73.02 Impaired glucose tolerance (oral) (principal); E78.5 Hyperlipidemia, unspecified
CPT/HCPCS: 36415; 80053; 80061; 83036; 83721; 85025

== ENCOUNTER 2020-07-15 14:22 | Outpatient (CLI) | payer MEDICARE ==
--- NOTE | 2020-07-16 10:10 | Mammography Report ---
BILATERAL DIGITAL SCREENING MAMMOGRAM 3D/2D: 07/15/2020 CLINICAL: Routine Screening. Comparison is made to exams dated: 07/18/2018 mammogram, 07/11/2017 mammogram, 05/22/2016 mammogram, mammogram, 04/15/2014 mammogram, and 03/10/2013 mammogram - [facility]. The re are scattered fibroglandular elements in both breasts. No significant masses, calcifications, or other findings are seen in either breast. There has been no significant interval change. IMPRESSION: NEGATIVE There is no mammographic evidence of malignancy. A 1 year screening mammogram is recommended. This exam was interpreted at Station ID: [id number]. NOTE: For mammograms, a report in lay terms will be sent to the patient. Approximately 15% of breast malignancies will not be visualized mammographically. In the management of a palpable breast mass, a negative mammogram must not discourage biopsy of a clinically suspicious lesion. Electronically Signed By: Bennett Zaidi M.D. [email or web address]/[email or web address]:07/15/2020 15:05:20 ACR BI-RADS Category 1: Negative 3341F PARENCHYMAL PATTERN: (A) - The breast(s) demonstrate(s) scattered fibroglandular densities. BI-RADS CATEGORY: (1) - 1 RECOMMENDATION: (ANNUAL) - Recommend routine annual screening mammography. [id number] 1 year screening LATERALITY: (B)
== END 2020-07-15 14:23 | disposition home or self-care (01) ==
LOC: DI.N 14:22
PROVIDERS: ATTEND Family Medicine
DX: Z12.31 Encounter for screening mammogram for malignant neoplasm of breast (principal)

== ENCOUNTER 2020-08-10 11:49 | Day surgery (SDC) | payer MEDICARE ==
[2020-08-10] MEDS ORDERED: LACTATED RINGERS 1,000 ML IV ONE ×2 (13:01→14:48)
[2020-08-10] MEDS ORDERED: LIDOCAINE-MPF 2% 5 ML VIAL ONE (13:34)
[2020-08-10] MEDS ORDERED: PROPOFOL 500 MG/50 ML 500 MG/50 ML VIAL ONE (13:34)
[2020-08-10] MEDS ORDERED: fentaNYL 100 MCG/2 ML VIAL ONE (13:34)
[2020-08-10] MEDS ORDERED: MIDAZOLAM 2 MG/2 ML VIAL ONE (13:34)
--- NOTE | 2020-08-10 13:55 | ANESTHESIA ---
Pre-Anesthesia VS, & Labs - Diagnosis history of colon polyps - Procedure colonoscopy Vital Signs: Temp Pulse Resp BP Pulse Ox 36.2 C L 95 18 178/85 H 100 08/10/20 12:37 08/10/20 12:37 08/10/20 12:37 08/10/20 12:37 08/10/20 12:37 Height: 5 ft 2 in Weight (kg): 80 kg Body Mass Index: 32.2 BMI Classification: Obese - NPO >8 hours - Is Patient ?: No Home Medications and Allergies Gabapentin [Neurontin] 300 - 600 mg PO HS 03/17/13 Latanoprost [Xalatan] 1 drops EACHEYE QPM 12/04/17 Cholecalciferol (Vitamin D3) [Vitamin D3] 1,000 unit PO DAILY 06/27/19 Multivitamin [Multiple Vitamins] 1 each PO DAILY 06/27/19 Cushing-3S/Dha/Epa/Fish Oil [Fish Oil 1,200 mg Softgel] 1 each PO DAILY 06/27/19 Pravastatin Sodium 40 mg PO QPM 06/27/19 Allergies/Adverse Reactions: Allergies Allergy/AdvReac Type Severity Reaction Status Date / Time niacin Allergy Unknown Anaphylaxis Verified 12/04/17 07:02 plastic tape AdvReac Mild Rash Uncoded 12/04/17 07:02 Anes History & Medical History - Anesthetic History Anesthesia Complications: reports: No previous complications - Medical History Cardiovascular: reports: High cholesterol Pulmonary: reports: None Gastrointestinal: reports: Colon polyps Urinary: reports: None Neuro: reports: Peripheral neuropathy Musculoskeletal: reports: None Endocrine/Autoimmune: reports: None Blood Disorders: reports: None Skin: reports: Other Smoking Status: Never smoker Psychosocial: reports: No issues indicated History of Cancer?: No - Surgical History General: reports: Colonoscopy Eyes Ears Nose Throat (EENT): reports: Cataracts, Tonsil/Adenoidectomy Gynecologic: reports: Hysterectomy Orthopedic: reports: Knee replacement Exam General: Alert, Oriented x3, Cooperative, No acute distress Dental: WNL Mouth Openin Fingerbreadth Neck Mobility: Normal Mallampati classification: III Thyromental Distance: 4-6 cm Mental/Cognitive Status: Alert/Oriented X3, Normal for patient Plan Anesthesia Type: MAC Consent for Procedure(s) Verified and Reviewed: Yes Code Status: Attempt Resuscitation ASA classification: 2-Mild systemic disease Is this case an emergency?: No
[2020-08-10 15:04] VITALS: BP 163/73
--- NOTE | 2020-08-10 20:17 | ANESTHESIA POST OP EVALUATION ---
Anesthesia Post Eval - Post Anesthesia Eval Vitals: Last Vital Signs Temp 37 C 08/10/20 14:47 Pulse 82 08/10/20 15:03 Resp 15 08/10/20 15:03 BP 163/73 H 08/10/20 15:03 Pulse Ox 99 08/10/20 15:03 CV Function Including HR & BP: Stable Pain Control: Satisfactory Nausea & Vomiting: Negative Mental Status: Baseline Respiratory Status: Airway Patent Hydration Status: Satisfactory Anesthesia Complications: None
== END 2020-08-10 11:50 | disposition home or self-care (01) ==
LOC: SDS 11:49
PROVIDERS: ATTEND Surgery
DX: Z12.11 Encounter for screening for malignant neoplasm of colon (principal); K57.30 Diverticulosis of large intestine without perforation or abscess without bleeding; K64.8 Other hemorrhoids; R73.03 Prediabetes; E66.9 Obesity, unspecified; Z68.32 Body mass index [BMI] 32.0-32.9, adult
CPT/HCPCS: G0105; J7120

== ENCOUNTER 2020-12-20 10:10 | Outpatient (CLI) | payer MEDICARE ==
[2020-12-20 12:34] LABS: CHOLESTEROL 206 mg/dL; HDL CHOLESTEROL 52 mg/dL; LDL CHOLESTEROL,CALCULATED 112 mg/dL; LDL/HDL RATIO 2.2 (<4.4); TRIGLYCERIDES 211 mg/dL; VLDL CHOLESTEROL 42 mg/dL
== END 2020-12-20 23:59 | disposition home or self-care (01) ==
LOC: LAB.WCP 10:10
PROVIDERS: ATTEND Family Medicine
DX: E78.5 Hyperlipidemia, unspecified (principal); R73.03 Prediabetes
CPT/HCPCS: 36415; 80061; 83721

== ENCOUNTER 2021-08-01 08:44 | Outpatient (CLI) | payer MEDICARE ==
[2021-08-01 12:35] LABS: BASOPHILS % (AUTO) 0.3 %; EOSINOPHILS # (AUTO) 0.1 10^3/uL (0.0-0.7); EOSINOPHILS % (AUTO) 1.6 %; HGB - HEMOGLOBIN 12.9 g/dL (12.0-16.0); LYMPHOCYTES # (AUTO) 2.2 10^3/uL (1.5-3.5); LYMPHOCYTES % (AUTO) 34.6 %; MEAN CORPUSCULAR HEMOGLOBIN 27.2 pg (27.0-31.0); MEAN CORPUSCULAR HGB CONC 30.7 g/dL (32.0-36.0); MEAN CORPUSCULAR VOLUME 88.4 fL (81.0-99.0); MEAN PLATELET VOLUME 10.5 fL (7.9-10.8); MONOCYTES # (AUTO) 0.6 10^3/uL (0.0-1.0); MONOCYTES % (AUTO) 9.4 %; NEUTROPHILS # (AUTO) 3.4 10^3/uL (1.5-6.6); NEUTROPHILS % (AUTO) 53.5 %; PLT - PLATELET COUNT 252 10^3/uL (130-450); RED BLOOD COUNT 4.75 10^6/uL (4.20-5.40); RED CELL DISTRIBUTION WIDTH 13.7 % (12.0-15.0); WHITE BLOOD COUNT 6.4 x10^3/uL (4.8-10.8)
[2021-08-01 12:47] LABS: ALBUMIN 4.1 g/dL (3.2-5.5); ALBUMIN/GLOBULIN RATIO 1.1 (1.0-2.2); ALKALINE PHOSPHATASE 54 IU/L (42-121); ALT ALANINE AMINOTRANSFERASE 26 IU/L (10-60); AST ASPARTATE AMINOTRANSFERASE 28 IU/L (10-42); BILIRUBIN,TOTAL 0.7 mg/dL (0.2-1.0); BUN - BLOOD UREA NITROGEN 17 mg/dL (6-20); CALCIUM 9.7 mg/dL (8.5-10.3); CARBON DIOXIDE - CO2 29 mmol/L (21-32); CHLORIDE 102 mmol/L (101-111); CHOLESTEROL 190 mg/dL; CREATININE 0.8 mg/dL (0.4-1.0); GFR - MDRD 69 (>89); GLUCOSE 138 mg/dL (70-100); HDL CHOLESTEROL 48 mg/dL; LDL CHOLESTEROL,CALCULATED 111 mg/dL; LDL/HDL RATIO 2.3 (<4.4); POTASSIUM 4.1 mmol/L (3.5-5.0); SODIUM 143 mmol/L (135-145); TOTAL PROTEIN 7.7 g/dL (6.7-8.2); TRIGLYCERIDES 154 mg/dL; VLDL CHOLESTEROL 31 mg/dL
[2021-08-01 12:59] LABS: THYROID STIMULATING HORMONE 1.63 uIU/mL (0.34-5.60)
[2021-08-01 13:59] LABS: ESTIMATED AVERAGE GLUCOSE 131 mg/dL (70-100); HEMOGLOBIN A1c% 6.2 % (4.27-6.07)
== END 2021-08-01 08:45 | disposition home or self-care (01) ==
LOC: LAB.N 08:44
PROVIDERS: ATTEND Family Medicine
DX: E66.9 Obesity, unspecified (principal); E78.5 Hyperlipidemia, unspecified; R73.03 Prediabetes
CPT/HCPCS: 36415; 80053; 80061; 83036; 83721; 84443; 85025

== ENCOUNTER 2022-06-13 14:33 | Outpatient (CLI) | payer MEDICARE ==
--- NOTE | 2022-06-14 11:30 | Mammography Report ---
BILATERAL DIGITAL SCREENING MAMMOGRAM 3D/2D: 06/13/2022 CLINICAL: Routine screening. Comparison is made to exams dated: 07/15/2020 mammogram, 07/18/2018 mammogram, 07/11/2017 mammogram, and 05/22/2016 mammogram - [facility]. There are scattered areas of fibroglandular density in both breasts (category b / 25%-50% glandular t issue). No significant masses, calcifications, or other findings are seen in either breast. There has been no significant interval change. IMPRESSION: NEGATIVE There is no mammographic evidence of malignancy. A 1 year screening mammogram is recommended. Based on the Tyrer Cuzick model (a risk assessment model) the patients lifetime risk is 0.4% and her 10 year risk is 0.0%. According to the ACR, ACS, and NCCN guidelines, an annual breast MRI exam rivka g with mammogram is recommended if the patients lifetime risk is 20% or greater. This exam was interpreted at Station ID: [id number]. NOTE: For mammograms, a report in lay terms will be sent to the patient. Approximately 15% of breast malignancies will not be visualized mammographically. In the management of a palpable breast mass, a negative mammogram must not discourage biopsy of a clinically suspicious lesion. Electronically Signed By: Dick Bennett M.D. [facility] [place], [email or web address]:06/13/2022 17:34:24 ACR BI-RADS Category 1: Negative 3341F PARENCHYMAL PATTERN: (A) - The breast(s) demonstrate(s) scattered fibroglandular densities. BI-RADS CATEGORY: (1) - 1 RECOMMENDATION: (ANNUAL) - Recommend routine annual screening mammography. [id number] 1 year screening LATERALITY: (B)
== END 2022-06-13 14:34 | disposition home or self-care (01) ==
LOC: DI.N 14:33
DX: Z12.31 Encounter for screening mammogram for malignant neoplasm of breast (principal)

== ENCOUNTER 2022-07-24 08:51 | Outpatient (CLI) | payer MEDICARE ==
[2022-07-24 12:10] LABS: BASOPHILS % (AUTO) 0.3 %; EOSINOPHILS # (AUTO) 0.1 10^3/uL (0.0-0.7); EOSINOPHILS % (AUTO) 1.5 %; HCT - HEMATOCRIT 43.2 % (37.0-47.0); HGB - HEMOGLOBIN 12.8 g/dL (12.0-16.0); LYMPHOCYTES # (AUTO) 2.2 10^3/uL (1.5-3.5); LYMPHOCYTES % (AUTO) 31.9 %; MEAN CORPUSCULAR HEMOGLOBIN 26.7 pg (27.0-31.0); MEAN CORPUSCULAR HGB CONC 29.6 g/dL (32.0-36.0); MEAN PLATELET VOLUME 10.5 fL (7.9-10.8); MONOCYTES # (AUTO) 0.6 10^3/uL (0.0-1.0); MONOCYTES % (AUTO) 8.5 %; NEUTROPHILS # (AUTO) 3.9 10^3/uL (1.5-6.6); NEUTROPHILS % (AUTO) 57.1 %; PLT - PLATELET COUNT 223 10^3/uL (130-450); RED CELL DISTRIBUTION WIDTH 13.9 % (12.0-15.0); WHITE BLOOD COUNT 6.7 x10^3/uL (4.8-10.8)
[2022-07-24 12:42] LABS: ALBUMIN/GLOBULIN RATIO 1.1 (1.0-2.2); ALKALINE PHOSPHATASE 53 IU/L (42-121); ALT ALANINE AMINOTRANSFERASE 25 IU/L (10-60); AST ASPARTATE AMINOTRANSFERASE 24 IU/L (10-42); BILIRUBIN,TOTAL 0.5 mg/dL (0.2-1.0); BUN - BLOOD UREA NITROGEN 16 mg/dL (6-20); CALCIUM 9.4 mg/dL (8.5-10.3); CARBON DIOXIDE - CO2 29 mmol/L (21-32); CHLORIDE 105 mmol/L (101-111); CHOL/HDL RATIO 4.2 (<4.4); CHOLESTEROL 206 mg/dL; CREATININE 0.8 mg/dL (0.4-1.0); GFR - MDRD 69 (>89); GLUCOSE 147 mg/dL (70-100); HDL CHOLESTEROL 49 mg/dL; LDL CHOLESTEROL,CALCULATED 116 mg/dL; LDL/HDL RATIO 2.4 (<4.4); POTASSIUM 4.3 mmol/L (3.5-5.0); SODIUM 141 mmol/L (135-145); TOTAL PROTEIN 7.5 g/dL (6.7-8.2); TRIGLYCERIDES 204 mg/dL; VLDL CHOLESTEROL 41 mg/dL
[2022-07-24 13:03] LABS: ESTIMATED AVERAGE GLUCOSE 134 mg/dL (70-100); HEMOGLOBIN A1c% 6.3 % (4.27-6.07)
[2022-07-24 13:06] LABS: THYROID STIMULATING HORMONE 1.58 uIU/mL (0.34-5.60)
== END 2022-07-24 08:52 | disposition home or self-care (01) ==
LOC: LAB.N 08:51
PROVIDERS: ATTEND Family Medicine
DX: E78.5 Hyperlipidemia, unspecified (principal); R73.03 Prediabetes; M54.9 Dorsalgia, unspecified
CPT/HCPCS: 36415; 80053; 80061; 83036; 83721; 84443; 85025

== ENCOUNTER 2022-08-29 11:52 | Emergency (ER) | payer MEDICARE ==
--- NOTE | 2022-08-29 12:51 | ED Physician Documentation ---
PD HPI LOWER EXT INJURY - Stated complaint Stated Complaint: LT KNEE PX - Chief complaint Chief Complaint: Back Pain - History obtained from History obtained from: Patient - Additional information Additional information: 81-year-old woman has had both knees replaced, the right about 3 years ago, the left about 2 years ago both at [place]. She is always had some pain in both knees, a few days ago her left knee gave out on her and she fell. She was not injured in the fall, but the knee especially on the left feels unstable to her. PD PAST MEDICAL HISTORY - Past Medical History Past Medical History: Yes Cardiovascular: High cholesterol Respiratory: None Neuro: Peripheral neuropathy Endocrine/Autoimmune: None GI: Colon polyps PRINT PROJECT MANAGER: None : None HEENT: None Psych: None Musculoskeletal: None Derm: Other - Past Surgical History Past Surgical History: Yes General: Colonoscopy Ortho: Knee replacement /PRINT PROJECT MANAGER: Hysterectomy HEENT: Cataracts, Tonsil/Adenoidectomy - Present Medications Home Medications: Ambulatory Orders Medication Instructions Recorded Confirmed Gabapentin [Neurontin] 300 - 600 mg PO HS 03/17/13 08/10/20 Latanoprost [Xalatan] 1 drops EACHEYE QPM 12/04/17 08/10/20 Cholecalciferol (Vitamin D3) 1,000 unit PO DAILY 06/27/19 08/09/20 [Vitamin D3] Multivitamin [Multiple Vitamins] 1 each PO DAILY 06/27/19 08/09/20 [place]-3S/Dha/Epa/Fish Oil [Fish 1 each PO DAILY 06/27/19 08/09/20 Oil 1,200 mg Softgel] Pravastatin Sodium 40 mg PO QPM 06/27/19 08/10/20 - Allergies Allergies/Adverse Reactions: Allergies Allergy/AdvReac Type Severity Reaction Status Date / Time niacin Allergy Unknown Anaphylaxis Verified 08/29/22 12:02 plastic tape AdvReac Mild Rash Uncoded 08/29/22 12:02 - Social History Does the pt smoke?: No Smoking Status: Never smoker Does the pt drink ETOH?: Yes Does the pt have substance abuse?: No - Immunizations Immunizations are current?: No - POLST Patient has POLST: No PD ED PE NORMAL - Vitals Vital signs reviewed: Yes - General General: Alert and oriented X 3, No acute distress - Back Back: No spinal TTP - Extremities Extremities: Other (Neither knee has an effusion. The left knee is tender over the lateral joint line and there is potentially some laxity with anterior drawer testing.) - Neuro Neuro: Alert and oriented X 3, Normal speech Results - Vitals Vitals: Vital Signs - 24 hr 08/29/22 08/29/22 11:57 12:41 Temperature 36.0 C L Heart Rate 101 H Respiratory 16 16 Rate Blood Pressure 172/78 H O2 Saturation 99 Oxygen O2 Source Room air - Rads (name of study) 2 view x-ray of both knees is unremarkable Relevant Findings:: Final report received, EMP independent interpretation of test Departure - Departure Disposition: Home, Self Care Clinical Impression: Bilateral knee pain Condition: Good Record reviewed to determine appropriate education?: Yes Follow-Up: [facility] [Provider Group] Comments: X-rays are looking okay, I would keep the splint on the left leg when up and yefri und to add some stability to your knee and follow-up with your knee surgeon. Alternatively you could follow-up with one of our surgeons, the numbers listed on this form. Return for new or worsening symptoms.
--- NOTE | 2022-08-29 13:38 | XRAY Report ---
PROCEDURE: Knee 2 View BILAT INDICATIONS: knee pain L>R TECHNIQUE: 2 views of the bilateral knee(s) were acquired. COMPARISON: None. FINDINGS: Bones: Bilateral total knee arthroplasties, with no radiographic evidence of complications. No hardw are failure or loosening. No fractures or dislocations. No suspicious bony lesions. Soft tissues: No knee joint effusion. No suspicious soft tissue calcifications or masses. IMPRESSION: No acute bony abnormality. Expected appearance of bilateral total knee arthroplasties. Reviewed by: Brandon Doran MD on 08/29/2022 1:37 PM PDT Approved by: Brandon Doran MD on 08/29/2022 1:37 PM PDT Station ID: [id number]
[2022-08-29 14:12] VITALS: BP 183/78
== END 2022-08-29 14:15 | disposition home or self-care (01) ==
LOC: ED 11:52
DX: M25.562 Pain in left knee (principal); M25.561 Pain in right knee
CPT/HCPCS: 99283

== ENCOUNTER 2023-08-31 08:10 | Outpatient (CLI) | payer MEDICARE ==
[2023-08-31 12:34] LABS: BASOPHILS % (AUTO) 0.3 %; EOSINOPHILS # (AUTO) 0.1 10^3/uL (0.0-0.7); EOSINOPHILS % (AUTO) 1.7 %; HCT - HEMATOCRIT 42.4 % (37.0-47.0); HGB - HEMOGLOBIN 12.4 g/dL (12.0-16.0); LYMPHOCYTES # (AUTO) 2.6 10^3/uL (1.5-3.5); LYMPHOCYTES % (AUTO) 36.7 %; MEAN CORPUSCULAR HEMOGLOBIN 25.5 pg (27.0-31.0); MEAN CORPUSCULAR HGB CONC 29.2 g/dL (32.0-36.0); MEAN CORPUSCULAR VOLUME 87.2 fL (81.0-99.0); MEAN PLATELET VOLUME 10.6 fL (7.9-10.8); MONOCYTES # (AUTO) 0.7 10^3/uL (0.0-1.0); MONOCYTES % (AUTO) 9.8 %; NEUTROPHILS # (AUTO) 3.6 10^3/uL (1.5-6.6); NEUTROPHILS % (AUTO) 51.1 %; PLT - PLATELET COUNT 251 10^3/uL (130-450); RED BLOOD COUNT 4.86 10^6/uL (4.20-5.40); RED CELL DISTRIBUTION WIDTH 14.9 % (12.0-15.0); WHITE BLOOD COUNT 7.1 x10^3/uL (4.8-10.8)
[2023-08-31 12:50] LABS: ESTIMATED AVERAGE GLUCOSE 134 mg/dL (70-100); HEMOGLOBIN A1c% 6.3 % (4.27-6.07)
[2023-08-31 12:52] LABS: ALBUMIN 4.3 g/dL (3.2-5.5); ALBUMIN/GLOBULIN RATIO 1.4 (1.0-2.2); ALKALINE PHOSPHATASE 54 IU/L (42-121); ALT ALANINE AMINOTRANSFERASE 25 IU/L (10-60); AST ASPARTATE AMINOTRANSFERASE 25 IU/L (10-42); BILIRUBIN,TOTAL 0.6 mg/dL (0.2-1.0); BUN - BLOOD UREA NITROGEN 20 mg/dL (6-20); CARBON DIOXIDE - CO2 29 mmol/L (21-32); CHLORIDE 103 mmol/L (101-111); CHOL/HDL RATIO 3.8 (<4.4); CHOLESTEROL 188 mg/dL; CREATININE 0.9 mg/dL (0.6-1.3); GFR - MDRD 60 (>89); GLUCOSE 151 mg/dL (74-104); HDL CHOLESTEROL 50 mg/dL; LDL CHOLESTEROL,CALCULATED 95 mg/dL; LDL/HDL RATIO 1.9 (<4.4); POTASSIUM 4.3 mmol/L (3.5-4.5); SODIUM 139 mmol/L (135-145); TOTAL PROTEIN 7.3 g/dL (6.4-8.9); TRIGLYCERIDES 214 mg/dL (48-352); VLDL CHOLESTEROL 43 mg/dL
[2023-08-31 13:01] LABS: THYROID STIMULATING HORMONE 1.99 uIU/mL (0.34-5.60)
== END 2023-08-31 08:11 | disposition home or self-care (01) ==
LOC: LAB.N 08:10
PROVIDERS: ATTEND Family Medicine
DX: I10 Essential (primary) hypertension (principal); M25.369 Other instability, unspecified knee; E78.1 Pure hyperglyceridemia; R73.03 Prediabetes; G62.9 Polyneuropathy, unspecified; E78.5 Hyperlipidemia, unspecified
CPT/HCPCS: 36415; 80053; 80061; 83036; 83721; 84443; 85025